=== PATIENT | male | born 1965 | race Caucasian/White ===

== ENCOUNTER 2021-02-03 16:40 | Inpatient (IN) ==
[2021-02-03] MEDS ORDERED: ALBUTEROL HFA 8 GM INHALER INH ONE ×2 (18:14→21:31)
[2021-02-03] MEDS ORDERED: SODIUM CHLORIDE 0.9% 1000ML 500 ML IV ONE (18:14)
--- NOTE | 2021-02-03 18:30 | Emergency Department Note ---
Impression & Plan Hypoxia, Pulmonary emboli, Pneumonia, COVID-19 ED Provider Note NAME: MAGALI MARIA AGE: 55 SEX: M : 1965 ARRIVES VIA: Walk-In INFORMANT: [Patient] ED PROVIDER(S): [Greyson Singh MD] CHIEF COMPLAINT: Short of breath, chest pain HISTORY OF PRESENT ILLNESS: The patient is a 55-year-old male who states that he tested positive for COVID- 19 5 days ago. He has been sick for about 10 to 11 days. He has had a fever, some body aches, cough. He has lost his taste and smell. He has had some diarrhea, no vomiting. He has felt somewhat short of breath. Today, he felt more short of breath than the day before and, developed some right sided pleuritic chest pain. The pain is an 8/10. The patient presents for evaluation because of the pain and increasing dyspnea. He has had a DVT in the past. He has no heart or lung disease underlying. REVIEW OF SYSTEMS: See HPI for pertinent positives and negatives. A total of ten systems were reviewed and were otherwise negative. PMHx/PSHx: See Below SOCIAL HISTORY: See Below. PHYSICAL EXAM: GENERAL: Patient is in no acute distress. HEENT: No acute trauma, normocephalic atraumatic, mucous membranes moist, no nasal congestion, no scleral icterus. NECK: No stridor, no adenopathy, no meningismus, trachea is midline. LUNGS: Crackles at both bases, moist cough noted. No obvious respiratory distre ss although, his respiratory rate seems increased. HEART: Without murmurs gallops or rubs, regular rate and rhythm. ABDOMEN: Soft, nontender, bowel sounds positive, no hernias, no peritonitis. EXTREMITIES: No cyanosis, mild bilateral pedal edema, full range of motion of all the joints without pain or difficulty, no signs for acute trauma. NEUROLOGIC: Oriented x 3, no acute motor or sensory deficits, no focal weakness. SKIN: No rash, no jaundice, no diaphoresis. DIFFERENTIAL DIAGNOSIS: Reactive airway disease, pneumonia, pneumothorax, COPD, CHF, over 19, infection, cardiac ischemia, pulmonary embolism, bronchitis, musculoskeletal, gastrointestinal, as well as other pathologies. EMERGENCY DEPARTMENT COURSE/PROCEDURES: ECG: Indication was shortness of breath. The ECG shows a normal sinus rhythm with a rate of 76. There is no ST elevation, no PVCs. The QTc is 436. Continuous Cardiac Monitoring: An order was placed for continuous cardiac monitoring. The monitor shows a rate of 82 with normal sinus rhythm. Critical Care Note: I have personally spent 41 minutes of critical care time in the direct management of this patient. This includes bedside care, interpretation of diagnostic studies, and testing, discussion with consultants, patient, and family members, and other required patient management activities. This 41 minutes is in excess of all separately billable procedures. MEDICAL DECISION MAKING: There is no leukocytosis or concerning anemia. There is a normal platelet count. No coagulopathy. Sodium and potassium both somewhat low. No kidney failure. No concerning liver enzyme elevation. ECG shows a sinus rhythm, no acute ischemic change. Cardiac enzyme testing x1 is not consistent with acute cardiac injury. Chest film shows bilateral congestion consistent with viral pneumonia. No pneumothorax. Covid testing returned positive. Chest CT suggest a pulmonary embolus and bilateral pulmonary infiltrates. Bilateral lower extremity ultrasound did not show any acute DVT. The patient was hypoxic here with a sat around 88%. He was placed on nasal cannula oxygen. He was given a 500 cc saline bolus. He was given albuterol via MDI. The patient is in need of a hospital stay. He has Covid pneumonia and is hypoxic. He has some pulmonary emboli. I spoke with the patient, I talked to the transplant case manager. The on-call hospitalist was consulted. Past Med/Surg History Medical History GERD (gastroesophageal reflux disease) Hypertension Impaired fasting glucose Right leg injury broken R leg, surgery to repair, approx 1976 Family History Grandfather (Paternal) Diabetes Father Heart disease Lung disease Grandmother (Maternal) Cancer of unknown origin Denies family history of Ovarian cancer Prostate cancer Myocardial infarction Breast cancer Colorectal cancer Hypertension Social History Smoking Status: Never smoker Tobacco Type: Smokeless Tobacco (Dip or Chew) Cigarettes Per Day: 1 cigarette per day in the morning, chews tobacco; Second Hand Exposure: Yes; Hx Alcohol Use: Yes Alcohol type: beer Hx Substance Use: No marital status: / Current Living Situation: Alone current occupational status: employed Feels Safe at Home: Yes Dental Care, Regularly: No Physical Activity Frequency: Daily Seatbelt Use: never Sunscreen Use: No Assistive Devices: CPAP Allergies Allergies Allergy/AdvReac Type Severity Reaction Status Date / Time No Known Allergies Allergy Verified 02/03/21 22:05 Home Meds Previous Rx's Medication Instructions Recorded lisinopril 10 mg tablet 10 mg PO DAILY #30 tab 05/24/20 hydrochlorothiazide 25 mg tablet 25 mg PO DAILY PRN #30 tab 01/11/21 amoxicillin 875 mg-potassium 1 tab PO BID #14 tab 01/28/21 clavulanate 125 mg tablet (Augmentin) azithromycin 250 mg tablet See Rx Instructions PO .COMPLEX #6 02/02/21 tab Results & Data (ED) Vital Signs Vital Signs - 24 hr 02/03/21 17:13 02/03/21 21:26 02/03/21 21:28 Temperature 37.0 C Temperature Source Temporal Artery Scan Pulse Rate 88 Pulse Rate [Apical] 82 Respiratory Rate 20 22 Respiratory Effort / Characteristics Non-Labored Non-Labored Spontaneous Respiratory Depth Normal Respiratory Pattern Regular Blood Pressure 140/81 Blood Pressure [Right Arm] 147/86 H Blood Pressure Mean 100 Blood Pressure Mean [Right Arm] 106 Pulse Oximetry 92 90 90 Oxygen Delivery Method Room Air Room Air Room Air Oxygen Flow Rate Sepsis Recent Fever Within 48 Hours No Sepsis New/Unexplained Change in Mental Status No Sepsis Action Taken by Nursing No Action Required Oxygen Flow Rate - Titration Pulse Oximetry Post Tiitration 02/03/21 21:37 02/03/21 21:41 02/03/21 23:20 Temperature Temperature Source Pulse Rate Pulse Rate [Apical] 83 Respiratory Rate 22 Respiratory Effort / Characteristics Non-Labored Spontaneous Respiratory Depth Normal Respiratory Pattern Blood Pressure Blood Pressure [Right Arm] 128/75 Blood Pressure Mean Blood Pressure Mean [Right Arm] 92 Pulse Oximetry 88 L 88 L 93 Oxygen Delivery Method Room Air Room Air Nasal Cannula Nasal Cannula Oxygen Flow Rate 2 Sepsis Recent Fever Within 48 Hours Sepsis New/Unexplained Change in Mental Status Sepsis Action Taken by Nursing Oxygen Flow Rate - Titration 2 Pulse Oximetry Post Tiitration 95 Home Medications Current Medication List: was personally reviewed by me Laboratory Data Attestation: I reviewed the patient's lab results. Result diagrams: 02/03/21 20:05 02/03/21 20:05 Lab Results 02/03/21 02/03/21 02/03/21 Range/Units 20:05 20:05 20:05 WBC 5.89 (4.8-10.8) K/uL RBC 5.00 (4.7-6.1) M/uL Hgb 16.1 (14.0-18.0) g/dL Hct 46.2 (42-52) % MCV 92.4 (80-100) fL MCH 32.2 (25-34) pg MCHC 34.8 (32-36) g/dL RDW Std Deviation 45.1 (36.4-46.3) fL RDW Coeff of Bautista 13.3 (11.5-14.5) % Plt Count 183 (130-400) K/uL MPV 9.7 (7.4-10.4) fL Immature Gran % (Auto) 0.2 % Neut % (Auto) 73.5 % Lymph % (Auto) 16.1 % Doddridge % (Auto) 10.0 % Eos % (Auto) 0.0 % Baso % (Auto) 0.2 % Neut # (Auto) 4.33 (1.4-6.5) K/uL Lymph # (Auto) 0.95 L (1.2-3.4) K/uL Doddridge # (Auto) 0.59 (0.11-0.59) K/uL Eos # (Auto) 0.00 (0-0.5) K/uL Baso # (Auto) 0.01 (0-0.2) K/uL Immature Gran # (Auto) 0.01 (0.00-0.02) K/uL PT 10.1 (9.0-12.0) Seconds INR 1.0 (0.9-1.1) APTT 27.6 (21.0-31.0) Seconds PTT Ratio 1.0 Sodium 130 L (136-145) mmol/L Potassium 3.4 L (3.5-5.1) mmol/L Chloride 93 L (98-107) mmol/L Carbon Dioxide 31 (21-32) mmol/L Anion Gap 6.0 (3-11) BUN 10 (7-18) mg/dl Creatinine 0.88 (0.6-1.4) mg/dl Est Cr Clr Drug Dosing 127.3 ml/min Est GFR ( Amer) 112.9 ml/min Est GFR (Non-Af Amer) 97.4 ml/min BUN/Creatinine Ratio 11.4 (10-20) Glucose 127 H (70-99) mg/dl Calcium 8.9 (8.5-10.1) mg/dl Magnesium 2.3 (1.8-2.4) mg/dl Total Bilirubin 0.9 (0.2-1) mg/dl AST 67 H (15-37) U/L ALT 56 (12-78) U/L Alkaline Phosphatase 46 (45-117) U/L Troponin I < 0.015 (0-0.045) ng/ml Total Protein 7.8 (6.4-8.2) gm/dl Albumin 3.1 L (3.4-5.0) gm/dl Globulin 4.7 H (2.5-4.0) gm/dl Albumin/Globulin Ratio 0.7 L (0.9-2) SARS-CoV-2 (PCR) (Negative) 02/03/21 Range/Units 21:47 WBC (4.8-10.8) K/uL RBC (4.7-6.1) M/uL Hgb (14.0-18.0) g/dL Hct (42-52) % MCV (80-100) fL MCH (25-34) pg MCHC (32-36) g/dL RDW Std Deviation (36.4-46.3) fL RDW Coeff of Bautista (11.5-14.5) % Plt Count (130-400) K/uL MPV (7.4-10.4) fL Immature Gran % (Auto) % Neut % (Auto) % Lymph % (Auto) % Doddridge % (Auto) % Eos % (Auto) % Baso % (Auto) % Neut # (Auto) (1.4-6.5) K/uL Lymph # (Auto) (1.2-3.4) K/uL Doddridge # (Auto) (0.11-0.59) K/uL Eos # (Auto) (0-0.5) K/uL Baso # (Auto) (0-0.2) K/uL Immature Gran # (Auto) (0.00-0.02) K/uL PT (9.0-12.0) Seconds INR (0.9-1.1) APTT (21.0-31.0) Seconds PTT Ratio Sodium (136-145) mmol/L Potassium (3.5-5.1) mmol/L Chloride (98-107) mmol/L Carbon Dioxide (21-32) mmol/L Anion Gap (3-11) BUN (7-18) mg/dl Creatinine (0.6-1.4) mg/dl Est Cr Clr Drug Dosing ml/min Est GFR ( Amer) ml/min Est GFR (Non-Af Amer) ml/min BUN/Creatinine Ratio (10-20) Glucose (70-99) mg/dl Calcium (8.5-10.1) mg/dl Magnesium (1.8-2.4) mg/dl Total Bilirubin (0.2-1) mg/dl AST (15-37) U/L ALT (12-78) U/L Alkaline Phosphatase (45-117) U/L Troponin I (0-0.045) ng/ml Total Protein (6.4-8.2) gm/dl Albumin (3.4-5.0) gm/dl Globulin (2.5-4.0) gm/dl Albumin/Globulin Ratio (0.9-2) SARS-CoV-2 (PCR) POSITIVE A* (Negative) Administered Medications Discontinued Medications Albuterol (Albuterol Hfa 8 Gm Inhaler) 2 puffs INH NOW ONE Stop: 02/03/21 18:15 Last Admin: 02/03/21 21:39 Dose: 2 puffs Documented by: [id number] Albuterol (Albuterol Hfa 8 Gm Inhaler) Confirm Administered Dose 60 puffs INH .STK-MED ONE Stop: 02/03/21 21:32 Last Admin: 02/03/21 21:35 Dose: Not Given Documented by: [id number] Sodium Chloride (Nss 1000ml) 500 mls @ 999 mls/hr IV .Q31M ONE Stop: 02/03/21 18:44 Last Infusion: 02/03/21 22:18 Dose: 0 mls/hr Documented by: [id number] Admin: 02/03/21 21:39 Dose: 999 mls/hr Documented by: [id number] Ioversol (Optiray 320 125ml) 120 ml IV ONCE ONE Stop: 02/03/21 21:02 Last Admin: 02/03/21 21:46 Dose: 120 ml Documented by: [id number] Imaging Data Radiologist's Impression: Chest X-Ray 02/03/21 17:17 XR chest 1V not portable CLINICAL HISTORY: SOB. . Positive Covid COMPARISON STUDY: No previous studies for comparison. TECHNIQUE: 1 view of the chest FINDINGS: Single frontal view of the chest demonstrates the cardiomediastinal silhouette to be within normal limits. Patchy interstitial and alveolar opacities are present bilaterally. The findings are most characteristic of a viral type pneumonitis. Covid 19 pneumonia should be excluded. There is no evidence for pleural effusion. There is no evidence for vascular congestion. There is no acute osseous pathology. IMPRESSION: Patchy interstitial and alveolar opacities bilaterally c haracteristic of a viral type pneumonitis and probable Covid 19 pneumonia. ACT 112: Negative or not required by law. Electronically signed by: William Whyte M.D. 02/03/2021 9:16 PM Chest CTA 02/03/21 18:14 CT ANGIOGRAM OF THE CHEST CLINICAL HISTORY: Dyspnea. Dizziness. Covid. COMPARISON STUDY: Chest x-ray dated 12/28/2009. TECHNIQUE: Following the IV administration of 120 cc of Optiray 320, CT angiogram of the chest was performed from the upper abdomen to the thoracic inlet utilizing the pulmonary embolus protocol. Images are reviewed in the axial, sagittal, and coronal planes. 3-D MIPS images are created and assessed. IV contrast was administered without complication. A dose lowering technique was utilized adhering to the principles of ALARA. The examination is modestly degraded by motion artifact. CT DOSE: 750.53 mGy.cm FINDINGS: Thyroid: Imaged portions of the thyroid gland are normal in size and attenuation. Thoracic aorta: The thoracic aorta is normal in caliber and demonstrates bovine variant arch anatomy. No dissection is seen. Pulmonary vasculature: The pulmonary trunk is normal in caliber. There is artif act versus trace nonocclusive pulmonary embolus within branches of the left lower lobe pulmonary artery (axial images #99 and #107). No additional filling defects identified in main, lobar, or proximal segmental pulmonary branches typical for pulmonary embolus. Evaluation of the peripheral branches is degraded by motion artifact. Heart: The heart is normal in size and without pericardial effusion. There are scattered coronary artery calcifications. Lungs and pleural spaces: There is multifocal groundglass consolidation seen throughout both lungs with a subpleural predominance. No pleural effusion is identified. There are scattered calcified granulomas. The trachea and central airways are clear. Mediastinum: There are calcified subcarinal nodes. No mediastinal adenopathy is identified. Shirley: Clear. Axillae: There is no axillary lymphadenopathy. Upper abdomen: A calcified granuloma is noted in the spleen. Partially visualized upper abdominal viscera is otherwise within normal limits. Skeletal structures: No lytic or blastic bony lesions are seen. IMPRESSION: 1. Artifact versus trace nonocclusive pulmonary embolus within branches of the left lower lobe pulmonary artery. 2. No additional findings are concerning for pulmonary embolus within the main, lobar, or proximal segmental pulmonary arteries. 3. Multifocal groundglass consolidation is consistent with the reported history of a viral pneumonia. Radiographic follow-up to resolution is recommended. 4. Additional findings as above. ACT 112: Negative or not required by law. Electronically signed by: Greyson Brewer M.D. 02/03/2021 9:16 PM Venous Doppler Study 02/03/21 21:42 ULTRASOUND BILATERAL LOWER EXTREMITY VENOUS CLINICAL HISTORY: Lower extremity edema. Covid. COMPARISON STUDY: No priors. TECHNIQUE: Real-time, grayscale, and color Doppler sonography of the deep veins of the right and left lower extremity was performed from the inguinal crease to the calf. Compression and augmentation were utilized. FINDINGS: There is no sonographic evidence of deep venous thrombosis identified in the right or left lower extremity. The common femoral, superficial femoral, and popliteal veins are patent and normally compressible bilaterally. The greater saphenous vein and the profunda femoris vein at the junction with the common femoral vein are clear in both legs. The visualized calf veins are patent bilaterally. IMPRESSION: There is no sonographic evidence of deep venous thrombosis identified in the right or left lower extremity. ACT 112: Negative or not required by law. Electronically signed by: Greyson Brewer M.D. 02/03/2021 10:55 PM Discharge Plan Visit Data Chief Complaint: Shortness of Breath/Dyspnea Stated Complaint: SOB - DIZZY - COVID POSITIVE ED Provider: Greyson Singh Discharge Problem: Hypoxia, Pulmonary emboli, Pneumonia, COVID-19 Patient Disposition: Admitted As Inpatient Condition: Fair Forms Stand Alone Forms: My [facility] Prescriptions Prescriptions: No Action lisinopril 10 mg tablet 10 mg PO DAILY Qty: 30 RF: 5 amoxicillin-pot clavulanate [Augmentin] 875-125 mg tablet 1 tab PO BID Qty: 14 RF: 0 azithromycin 250 mg tablet See Rx Instructions PO .COMPLEX Qty: 6 RF: 0 hydrochlorothiazide 25 mg tablet 25 mg PO DAILY PRN (Reason: swelling) Qty: 30 RF: 5 Referrals Referrals: Chanel De Anda CRNP [Primary Care Provider] -
[2021-02-03 20:17] LABS: Basophils # (auto) 0.01 K/uL (0-0.2); Basophils % (auto) 0.2 %; Hematocrit (blood only) 46.2 % (42-52); Hemoglobin 16.1 g/dL (14.0-18.0); Immature Granulocytes # (auto) 0.01 K/uL (0.00-0.02); Immature Granulocytes % (auto) 0.2 %; Lymphocytes # (auto) 0.95 K/uL (1.2-3.4); Lymphocytes % (auto) 16.1 %; Mean Corpuscular Hemoglobin 32.2 pg (25-34); Mean Corpuscular Hgb Conc 34.8 g/dL (32-36); Mean Corpuscular Volume 92.4 fL (80-100); Mean Platelet Volume 9.7 fL (7.4-10.4); Monocytes # (auto) 0.59 K/uL (0.11-0.59); Neutrophils # (auto) 4.33 K/uL (1.4-6.5); Neutrophils % (auto) 73.5 %; Platelet Count 183 K/uL (130-400); RDW Coefficient of Variation 13.3 % (11.5-14.5); RDW Standard Deviation 45.1 fL (36.4-46.3); White Blood Count 5.89 K/uL (4.8-10.8)
[2021-02-03 20:28] LABS: Partial Thromboplastin Time 27.6 Seconds (21.0-31.0); Prothrombin Time 10.1 Seconds (9.0-12.0)
[2021-02-03 20:35] LABS: Alanine Aminotransferase 56 U/L (12-78); Albumin Level 3.1 gm/dl (3.4-5.0); Aspartate Aminotransferase 67 U/L (15-37); BUN Creatinine Ratio 11.4 (10-20); Blood Urea Nitrogen 10 mg/dl (7-18); Calcium 8.9 mg/dl (8.5-10.1); Carbon Dioxide 31 mmol/L (21-32); Chloride 93 mmol/L (98-107); Creatinine Clr Calc Pharmacy 127.3 ml/min; Est GFR (African American) 112.9 ml/min; Est GFR (Non-African American) 97.4 ml/min; Glucose 127 mg/dl (70-99); Magnesium 2.3 mg/dl (1.8-2.4); Potassium 3.4 mmol/L (3.5-5.1); Sodium 130 mmol/L (136-145)
[2021-02-03 20:40] LABS: Albumin Globulin Ratio 0.7 (0.9-2); Alkaline Phosphatase 46 U/L (45-117); Bilirubin,Total 0.9 mg/dl (0.2-1); Globulin 4.7 gm/dl (2.5-4.0); Total Protein 7.8 gm/dl (6.4-8.2); Troponin I < 0.015 ng/ml (0-0.045)
[2021-02-03] MEDS ORDERED: OPTIRAY 320 125ml IV ONE (21:01)
--- NOTE | 2021-02-03 21:17 | XRay Report ---
XR chest 1V not portable CLINICAL HISTORY: SOB. . Positive Covid COMPARISON STUDY: No previous studies for comparison. TECHNIQUE: 1 view of the chest FINDINGS: Single frontal view of the chest demonstrates the cardiomediastinal silhouette to be within normal li mits. Patchy interstitial and alveolar opacities are present bilaterally. The findings are most hannah cteristic of a viral type pneumonitis. Covid 19 pneumonia should be excluded. There is no evidence fo r pleural effusion. There is no evidence for vascular congestion. There is no acute osseous pathology . IMPRESSION: Patchy interstitial and alveolar opacities bilaterally characteristic of a viral type pne umonitis and probable Covid 19 pneumonia. ACT 112: Negative or not required by law. Electronically signed by: William Whyte M.D. 02/03/2021 9:16 PM
--- NOTE | 2021-02-03 21:18 | CT Scan Report ---
CT ANGIOGRAM OF THE CHEST CLINICAL HISTORY: Dyspnea. Dizziness. Covid. COMPARISON STUDY: Chest x-ray dated 12/28/2009. TECHNIQUE: Following the IV administration of 120 cc of Optiray 320, CT angiogram of the chest was pe rformed from the upper abdomen to the thoracic inlet utilizing the pulmonary embolus protocol. Images are reviewed in the axial, sagittal, and coronal planes. 3-D MIPS images are created and assessed. I V contrast was administered without complication. A dose lowering technique was utilized adhering to the principles of ALARA. The examination is modestly degraded by motion artifact. CT DOSE: 750.53 mGy.cm FINDINGS: Thyroid: Imaged portions of the thyroid gland are normal in size and attenuation. Thoracic aorta: The thoracic aorta is normal in caliber and demonstrates bovine variant arch anatomy. No dissection is seen. Pulmonary vasculature: The pulmonary trunk is normal in caliber. There is artifact versus trace nonoc clusive pulmonary embolus within branches of the left lower lobe pulmonary artery (axial images #99 a nd #107). No additional filling defects identified in main, lobar, or proximal segmental pulmonary br anches typical for pulmonary embolus. Evaluation of the peripheral branches is degraded by motion art ifact. Heart: The heart is normal in size and without pericardial effusion. There are scattered coronary art marjorie calcifications. Lungs and pleural spaces: There is multifocal groundglass consolidation seen throughout both lungs wi th a subpleural predominance. No pleural effusion is identified. There are scattered calcified granul omas. The trachea and central airways are clear. Mediastinum: There are calcified subcarinal nodes. No mediastinal adenopathy is identified. Shirley: Clear. Axillae: There is no axillary lymphadenopathy. Upper abdomen: A calcified granuloma is noted in the spleen. Partially visualized upper abdominal vis cera is otherwise within normal limits. Skeletal structures: No lytic or blastic bony lesions are seen. IMPRESSION: 1. Artifact versus trace nonocclusive pulmonary embolus within branches of the left lower lobe pulmon baljinder artery. 2. No additional findings are concerning for pulmonary embolus within the main, lobar, or proximal se gmental pulmonary arteries. 3. Multifocal groundglass consolidation is consistent with the reported history of a viral pneumonia. Radiographic follow-up to resolution is recommended. 4. Additional findings as above. ACT 112: Negative or not required by law. Electronically signed by: Greyson Brewer M.D. 02/03/2021 9:16 PM
--- NOTE | 2021-02-03 22:56 | Ultrasound Report ---
ULTRASOUND BILATERAL LOWER EXTREMITY VENOUS CLINICAL HISTORY: Lower extremity edema. Covid. COMPARISON STUDY: No priors. TECHNIQUE: Real-time, grayscale, and color Doppler sonography of the deep veins of the right and left lower extremity was performed from the inguinal crease to the calf. Compression and augmentation wer e utilized. FINDINGS: There is no sonographic evidence of deep venous thrombosis identified in the right or left lower extremity. The common femoral, superficial femoral, and popliteal veins are patent and normally compressible bilaterally. The greater saphenous vein and the profunda femoris vein at the junction w ith the common femoral vein are clear in both legs. The visualized calf veins are patent bilaterally. IMPRESSION: There is no sonographic evidence of deep venous thrombosis identified in the right or lef t lower extremity. ACT 112: Negative or not required by law. Electronically signed by: Greyson Brewer M.D. 02/03/2021 10:55 PM
[2021-02-03] MEDS ORDERED: REMDESIVIR 200 MG in SODIUM CHLORIDE 0.9% 210 ML IV STA (23:42)
--- NOTE | 2021-02-03 23:43 | History & Physical Report ---
Date of Service February 03, 2021 Assessment & Plan (1) Pneumonia due to COVID-19 virus: Plan: Pneumonia due to COVID-19 virus with hypoxia- CT scan of chest also describes artifact versus trace nonocclusive pulmonary embolus within branches of the left lower lobe pulmonary artery. Follow up venous Dopplers were negative for DVT. I do not think that this questionable changes are significantly affecting the patient's health status Dexamethasone 6 mg IV every morning Duonebs every 4 hours while awake and every 2 hours when necessary. Remdesivir IV per protocol Azithromycin 500 mg IV daily Vitamin D 1000 international units p.o. every morning Zinc sulfate turn 20 mg p.o. every morning Lovenox subcu Pulse ox 88% on room air, titrate oxygen to keep pulse ox around 94% (2) Hypoxia: Plan: See above (3) Sleep apnea: Plan: CPAP at bedtime as needed (4) Hypertension: Plan: Hold HCTZ and lisinopril History of Present Illness Chief Complaint: The patient presents to the emergency department with shortness of breath, dyspnea exertion, cough, generalized fatigue that began about 9 to 10 days ago Primary Care Provider: SONIA Lamas The patient is a 55-year-old male with a past medical history including sleep apnea, snoring, excessive daytime sleepiness, GERD, impaired fasting glucose, hypertension, seborrheic keratoses and microscopic hematuria. The patient presents with 9 to 10 days of the above symptoms. He did have a positive home COVID-19test about 5 days ago. Pulse ox was 88% on room air in the ED Abnormal laboratories: AST 67, albumin 3.1, potassium 3.4 COVID-19 test was positive in the ED Chest x-ray and CT angiography of chest was negative for PE. Calcified granulomas were seen in the lungs, mediastinum, subcarinal areas and spleen. There are multiple groundglass opacities consistent with a viral pneumonia Allergies Allergy/AdvReac Type Severity Reaction Status Date / Time No Known Allergies Allergy Verified 02/03/21 22:05 Home Medications Medication Instructions Recorded Confirmed Type lisinopril 10 mg tablet 10 mg PO DAILY #30 tab 05/24/20 02/03/21 Rx hydrochlorothiazide 25 mg tablet 25 mg PO DAILY PRN #30 tab 01/11/21 02/03/21 Rx amoxicillin 875 mg-potassium 1 tab PO BID #14 tab 01/28/21 02/03/21 Rx clavulanate 125 mg tablet (Augmentin) azithromycin 250 mg tablet See Rx Instructions PO .COMPLEX #6 02/02/21 02/03/21 Rx tab Past Med/Surg History Medical History GERD (gastroesophageal reflux disease) Hypertension Impaired fasting glucose Right leg injury broken R leg, surgery to repair, approx 1976 Family History Grandfather (Paternal) Diabetes Father Heart disease Lung disease Grandmother (Maternal) Cancer of unknown origin Denies family history of Ovarian cancer Prostate cancer Myocardial infarction Breast cancer Colorectal cancer Hypertension Social History Smoking Status: Never smoker Tobacco Type: Smokeless Tobacco (Dip or Chew) Cigarettes Per Day: 1 cigarette per day in the morning, chews tobacco; Second Hand Exposure: Yes; Hx Alcohol Use: Yes Alcohol type: beer Hx Substance Use: No marital status: / Current Living Situation: Alone current occupational status: employed Feels Safe at Home: Yes Dental Care, Regularly: No Physical Activity Frequency: Daily Seatbelt Use: never Sunscreen Use: No Assistive Devices: CPAP Review of Systems Review of Systems: The patient denies chest pain, palpitations, lower extremity swelling, sore throat, chills, sweats, weight change, fatigue, nausea, vomiting, diarrhea , constipation, abdominal pain, pelvic pain, blood in urine or stool, dysuria, urinary frequency or urgency, lightheadedness, dizziness, headache, memory loss, loss of consciousness, rash, abnormal bruising or bleeding, imbalance, focal weakness, numbness or tingling in arms or legs, generalized arthralgias or myalgias, back or neck pain, or night sweats. The review of systems is otherwise negative other than for that already noted above, and at least 10 systems have been reviewed. Physical Exam Physical Exam: The patient is awake, alert and oriented 3, well developed and well nourished, normocephalic and atraumatic, lying in bed and in no acute distress. HEENT--PERRL, EOMI, mucous membranes and oropharynx normal. Neck--supple. No JVD. No bruits. Thyroid normal, trachea midline, no adenopathy. Heart--normal S1 and S2. No murmurs, rubs or gallops. Lungs--few coarse breath sounds bilaterally. No respiratory distress, no accessory muscle use. Abdomen--normal bowel sounds and soft. Nontender. Nondistended, no hernias or masses, no organomegaly. Extremities--no cyanosis or clubbing. No edema. Dermatologic--normal skin turgor, normal color, no abnormal lymph nodes, no rash. Neurologic--cranial nerves II through XII grossly intact. Rheumatologic--normal range of motion. Psychiatric--normal affect. Results & Data Results & Data ([facility]) Vital Signs (Past 12 Hours) Vital Signs Temp Pulse Pulse Resp BP BP Pulse Ox 02/03/21 23:20 83 22 128/75 93 02/03/21 21:41 88 L 02/03/21 21:37 88 L 02/03/21 21:28 90 02/03/21 21:26 82 22 147/86 H 90 02/03/21 17:13 37.0 C 88 20 140/81 92 Laboratory Results Laboratory Results WBC 5.89 K/uL (4.8-10.8) 02/03/21 20:05 RBC 5.00 M/uL (4.7-6.1) 02/03/21 20:05 Hgb 16.1 g/dL (14.0-18.0) 02/03/21 20:05 Hct 46.2 % (42-52) 02/03/21 20:05 MCV 92.4 fL (80-100) 02/03/21 20:05 MCH 32.2 pg (25-34) 02/03/21 20:05 MCHC 34.8 g/dL (32-36) 02/03/21 20:05 RDW Std Deviation 45.1 fL (36.4-46.3) 02/03/21 20:05 RDW Coeff of Bautista 13.3 % (11.5-14.5) 02/03/21 20:05 Plt Count 183 K/uL (130-400) 02/03/21 20:05 MPV 9.7 fL (7.4-10.4) 02/03/21 20:05 Immature Gran % (Auto) 0.2 % 02/03/21 20:05 Neut % (Auto) 73.5 % 02/03/21 20:05 Lymph % (Auto) 16.1 % 02/03/21 20:05 [place] % (Auto) 10.0 % 02/03/21 20:05 Eos % (Auto) 0.0 % 02/03/21 20:05 Baso % (Auto) 0.2 % 02/03/21 20:05 Neut # (Auto) 4.33 K/uL (1.4-6.5) 02/03/21 20:05 Lymph # (Auto) 0.95 K/uL (1.2-3.4) L 02/03/21 20:05 [place] # (Auto) 0.59 K/uL (0.11-0.59) 02/03/21 20:05 Eos # (Auto) 0.00 K/uL (0-0.5) 02/03/21 20:05 Baso # (Auto) 0.01 K/uL (0-0.2) 02/03/21 20:05 Immature Gran # (Auto) 0.01 K/uL (0.00-0.02) 02/03/21 20:05 PT 10.1 Seconds (9.0-12.0) 02/03/21 20:05 INR 1.0 (0.9-1.1) 02/03/21 20:05 APTT 27.6 Seconds (21.0-31.0) 02/03/21 20:05 PTT Ratio 1.0 02/03/21 20:05 Sodium 130 mmol/L (136-145) L 02/03/21 20:05 Potassium 3.4 mmol/L (3.5-5.1) L 02/03/21 20:05 Chloride 93 mmol/L (98-107) L 02/03/21 20:05 Carbon Dioxide 31 mmol/L (21-32) 02/03/21 20:05 Anion Gap 6.0 (3-11) 02/03/21 20:05 BUN 10 mg/dl (7-18) 02/03/21 20:05 Creatinine 0.88 mg/dl (0.6-1.4) 02/03/21 20:05 Est Cr Clr Drug Dosing 127.3 ml/min 02/03/21 20:05 Est GFR ( Amer) 112.9 ml/min 02/03/21 20:05 Est GFR (Non-Af Amer) 97.4 ml/min 02/03/21 20:05 BUN/Creatinine Ratio 11.4 (10-20) 02/03/21 20:05 Glucose 127 mg/dl (70-99) H 02/03/21 20:05 Calcium 8.9 mg/dl (8.5-10.1) 02/03/21 20:05 Magnesium 2.3 mg/dl (1.8-2.4) 02/03/21 20:05 Total Bilirubin 0.9 mg/dl (0.2-1) 02/03/21 20:05 AST 67 U/L (15-37) H 02/03/21 20:05 ALT 56 U/L (12-78) 02/03/21 20:05 Alkaline Phosphatase 46 U/L (45-117) 02/03/21 20:05 Troponin I < 0.015 ng/ml (0-0.045) 02/03/21 20:05 Total Protein 7.8 gm/dl (6.4-8.2) 02/03/21 20:05 Albumin 3.1 gm/dl (3.4-5.0) L 02/03/21 20:05 Globulin 4.7 gm/dl (2.5-4.0) H 02/03/21 20:05 Albumin/Globulin Ratio 0.7 (0.9-2) L 02/03/21 20:05 SARS-CoV-2 (PCR) POSITIVE (Negative) A* 02/03/21 21:47 Impressions Chest X-Ray 02/03/21 17:17 XR chest 1V not portable CLINICAL HISTORY: SOB. . Positive Covid COMPARISON STUDY: No previous studies for comparison. TECHNIQUE: 1 view of the chest FINDINGS: Single frontal view of the chest demonstrates the cardiomediastinal silhouette to be within normal limits. Patchy interstitial and alveolar opacities are present bilaterally. The findings are most characteristic of a viral type pneumonitis. Covid 19 pneumonia should be excluded. There is no evidence for pleural effusion. There is no evidence for vascular congestion. There is no acute osseous pathology. IMPRESSION: Patchy interstitial and alveolar opacities bilaterally characteristic of a viral type pneumonitis and probable Covid 19 pneumonia. ACT 112: Negative or not required by law. Electronically signed by: William Whyte M.D. 02/03/2021 9:16 PM Chest CTA 02/03/21 18:14 CT ANGIOGRAM OF THE CHEST CLINICAL HISTORY: Dyspnea. Dizziness. Covid. COMPARISON STUDY: Chest x-ray dated 12/28/2009. TECHNIQUE: Following the IV administration of 120 cc of Optiray 320, CT angiogram of the chest was performed from the upper abdomen to the thoracic inlet utilizing the pulmonary embolus protocol. Images are reviewed in the axial, sagittal, and coronal planes. 3-D MIPS images are created and assessed. IV contrast was administered without complication. A dose lowering technique was utilized adhering to the principles of ALARA. The examination is modestly degraded by motion artifact. CT DOSE: 750.53 mGy.cm FINDINGS: Thyroid: Imaged portions of the thyroid gland are normal in size and attenuation. Thoracic aorta: The thoracic aorta is normal in caliber and demonstrates bovine variant arch anatomy. No dissection is seen. Pulmonary vasculature: The pulmonary trunk is normal in caliber. There is artifact versus trace nonocclusive pulmonary embolus within branches of the left lower lobe pulmonary artery (axial images #99 and #107). No additional filling defects identified in main, lobar, or proximal segmental pulmonary branches typical for pulmonary embolus. Evaluation of the peripheral branches is degraded by motion artifact. Heart: The heart is normal in size and without pericardial effusion. There are scattered coronary artery calcifications. Lungs and pleural spaces: There is multifocal groundglass consolidation seen throughout both lungs with a subpleural predominance. No pleural effusion is identified. There are scattered calcified granulomas. The trachea and central airways are clear. Mediastinum: There are calcified subcarinal nodes. No mediastinal adenopathy is identified. [place]: Clear. Axillae: There is no axillary lymphadenopathy. Upper abdomen: A calcified granuloma is noted in the spleen. Partially visualized upper abdominal viscera is otherwise within normal limits. Skeletal structures: No lytic or blastic bony lesions are seen. IMPRESSION: 1. Artifact versus trace nonocclusive pulmonary embolus within branches of the left lower lobe pulmonary artery. 2. No additional findings are concerning for pulmonary embolus within the main, lobar, or proximal segmental pulmonary arteries. 3. Multifocal groundglass consolidation is consistent with the reported history of a viral pneumonia. Radiographic follow-up to resolution is recommended. 4. Additional findings as above. ACT 112: Negative or not required by law. Electronically signed by: rGeyson Brewer M.D. 02/03/2021 9:16 PM Venous Doppler Study 02/03/21 21:42 ULTRASOUND BILATERAL LOWER EXTREMITY VENOUS CLINICAL HISTORY: Lower extremity edema. Covid. COMPARISON STUDY: No priors. TECHNIQUE: Real-time, grayscale, and color Doppler sonography of the deep veins of the right and left lower extremity was performed from the inguinal crease to the calf. Compression and augmentation were utilized. FINDINGS: There is no sonographic evidence of deep venous thrombosis identified in the right or left lower extremity. The common femoral, superficial femoral, and popliteal veins are patent and normally compressible bilaterally. The greater saphenous vein and the profunda femoris vein at the junction with the common femoral vein are clear in both legs. The visualized calf veins are patent bilaterally. IMPRESSION: There is no sonographic evidence of deep venous thrombosis identified in the right or left lower extremity. ACT 112: Negative or not required by law. Electronically signed by: Greyson Brewer M.D. 02/03/2021 10:55 PM Code Status & VTE Plan Code Status Full code VTE Prophylaxis Plan VTE Prophylaxis will be ordered: Yes PG Care Time/CCT Total # of Minutes Spent Total Time Spent with Patient: Total time spent is greater than 50% in coordination of care (as documented) at patient's floor/unit and/or counseling patient: Coding Level of Care Code 09178 Initial Inpt Care Lvl 3 Diagnoses Pneumonia due to COVID-19 virus U07.1; J12.82 Hypoxia R09.02 Sleep apnea G47.30 Hypertension I10
[2021-02-04] MEDS ORDERED: NSS + 20MEQ KCL 20 MEQ/1,000 ML BAG IV SCH (02:26)
[2021-02-04] MEDS ORDERED: ONDANSETRON INJ 2 MG/ML 2 ML VIAL IV PRN (02:26)
[2021-02-04] MEDS ORDERED: ACETAMINOPHEN 325 MG TAB PO PRN (02:26)
[2021-02-04] MEDS: SODIUM CHLORIDE 0.9% 10ML FLUSH IV SCH ×2 (03:29→20:50)
[2021-02-04] MEDS: dexAMETHasone 6 MG in SYRINGE 0 ML IV SCH (03:56)
[2021-02-04] MEDS ORDERED: FLUARIX QUADRIVALENT 0.5 ML SYR IM ONE (04:08)
[2021-02-04] MEDS ORDERED: ALBUT/IPRATROP 3MG/0.5MG NEB 3 ML VIAL NEB SCH (07:00)
--- NOTE | 2021-02-04 07:30 | Electrocardiogram Report ---
Test Reason : Blood Pressure : / mmHG Vent. Rate : 076 BPM Atrial Rate : 076 BPM P-R Int : 166 ms QRS Dur : 106 ms QT Int : 388 ms P-R-T Axes : 025 018 027 degrees QTc Int : 436 ms Normal sinus rhythm Normal ECG When compared with ECG of 28-DEC-2009 15:46, No significant change was found Confirmed by Dionisio Richey ([id number]) on 02/04/2021 7:30:42 AM Referred By: REFERRED SELF Confirmed By:Phoenix Richey
[2021-02-04] MEDS ORDERED: ALBUT/IPRATROP 3MG/0.5MG NEB 3 ML VIAL NEB PRN (08:39)
[2021-02-04] MEDS ORDERED: AZITHROMYCIN 500 MG in DEXTROSE 5% 250 ML IV SCH (09:00)
[2021-02-04] MEDS: CHOLECALCIFEROL 1,000 UNITS 25 MCG TAB PO SCH (09:06)
[2021-02-04] MEDS: guaiFENesin 600 MG TABCR PO SCH ×2 (09:06→20:51)
[2021-02-04] MEDS: ZINC SULFATE 220 MG CAPSULE PO SCH (09:06)
[2021-02-04] MEDS: ENOXAPARIN INJ 60 MG/0.6 ML SYR SQ SCH (09:13)
[2021-02-04 12:37] LABS: Basophils # (auto) 0.02 K/uL (0-0.2); Basophils % (auto) 0.4 %; Hematocrit (blood only) 43.5 % (42-52); Hemoglobin 15.3 g/dL (14.0-18.0); Immature Granulocytes # (auto) 0.01 K/uL (0.00-0.02); Immature Granulocytes % (auto) 0.2 %; Lymphocytes # (auto) 0.54 K/uL (1.2-3.4); Mean Corpuscular Hemoglobin 32.6 pg (25-34); Mean Corpuscular Hgb Conc 35.2 g/dL (32-36); Mean Corpuscular Volume 92.6 fL (80-100); Mean Platelet Volume 10.6 fL (7.4-10.4); Monocytes # (auto) 0.19 K/uL (0.11-0.59); Monocytes % (auto) 3.9 %; Neutrophils # (auto) 4.13 K/uL (1.4-6.5); Neutrophils % (auto) 84.5 %; Platelet Count 217 K/uL (130-400); RDW Coefficient of Variation 13.2 % (11.5-14.5); RDW Standard Deviation 45.2 fL (36.4-46.3); White Blood Count 4.89 K/uL (4.8-10.8)
[2021-02-04 12:56] LABS: Albumin Level 2.9 gm/dl (3.4-5.0); Calcium 8.7 mg/dl (8.5-10.1); Est GFR (African American) 115.6 ml/min; Est GFR (Non-African American) 99.8 ml/min; Potassium 3.8 mmol/L (3.5-5.1)
[2021-02-04 12:59] LABS: Albumin Globulin Ratio 0.6 (0.9-2); Bilirubin,Total 0.8 mg/dl (0.2-1); Globulin 4.5 gm/dl (2.5-4.0); Total Protein 7.4 gm/dl (6.4-8.2)
[2021-02-04] MEDS ORDERED: REMDESIVIR 100 MG in SODIUM CHLORIDE 0.9% 230 ML IV SCH (20:00)
--- NOTE | 2021-02-04 20:31 | Hospitalist Progress Note ---
Date of Service February 04, 2021 Assessment & Plan (1) Pneumonia due to COVID-19 virus: Plan: Pneumonia due to COVID-19 virus with hypoxia- CT scan of chest also describes artifact versus trace nonocclusive pulmonary embolus within branches of the left lower lobe pulmonary artery. Follow up venous Dopplers were negative for DVT doubt DVT at this time but given size and risk factor, will continue Lovenox while here, Xarelto on discharge continue Dexamethasone 6mg IV daily stop Remdesivir as he is 10 days out change Zithromax to PO, complete 5 days total on 2L, try to titrate as tolerated Vitamin D 1000 international units p.o. every morning Zinc sulfate turn 20 mg p.o. every morning (2) Hypoxia: Plan: stable on 2L, try to titrate to room air, no distress or increased work of breathing give lasix 20mg IV in the morning to keep negative fluid balance (3) Sleep apnea: Plan: CPAP at bedtime as needed his home CPAP does not have an oxygen connection (4) Hypertension: Plan: Hold HCTZ and lisinopril, BP is stable off it Plan: try to wean off oxygen consider d/c to home tomorrow if he is on room air Admission and Anticipated Discharge Date Admission Date: February 03, 2021 Subjective patient doing well on 2L today, no distress, confirms he has been sick around 10 days discussed reasoning behind stopping Remdesivir, he understands, will change Zithromax to PO he is finally eating more, admits he was not eating a lot prior to admission, had some nausea but that is gone no chest pain, no fever, minimal cough, no diarrhea reviewed labs and chart discussed that if we can get him on room air he can go home, will try a dose of Lasix in the morning as he appears a little volume overloaded Review of Systems Review of Systems: All systems reviewed & are unremarkable except as noted in Subjective Physical Exam Physical Exam: General: well developed, well nourished, obese male, no acute distress, comfortable Neck: supple, trachea midline, normal thyroid Lungs: clear to auscultation bilaterally, normal respiratory effort, no accessory muscle use, no distress Heart: regular S1 and S2, no murmur, peripheral pulses normal, capillary refill normal, trace edema in ankles Abdomen: soft, NT, ND, + BS, no hepatomegaly, normal to percussion Extremities: normal in appearance, no cyanosis, no petechiae, strength is 5/5 bilaterally Neuro: awake, cooperative, moves all extremities, no focal motor deficits, CN II-XII intact, sensation in extremities intact, normal speech Skin: warm, dry, no rash, normal turgor Psych: Awake, alert oriented x 3, euthymic affect Results & Data Results & Data ([facility]) Vital Signs (Past 12 Hours) Vital Signs Temp Pulse Pulse Resp BP Pulse Ox 02/04/21 15:24 36.8 C 81 16 136/72 92 02/04/21 15:10 71 02/04/21 13:12 36.7 C 78 16 130/78 95 02/04/21 13:00 79 02/04/21 12:00 80 24 02/04/21 10:00 75 23 Laboratory Results Laboratory Results - last 24 hr 02/03/21 02/03/21 02/04/21 20:05 21:47 08:41 WBC 4.89 RBC 4.70 Hgb 15.3 Hct 43.5 MCV 92.6 MCH 32.6 MCHC 35.2 RDW Std Deviation 45.2 RDW Coeff of Bautista 13.2 Plt Count 217 MPV 10.6 H Immature Gran % (Auto) 0.2 Neut % (Auto) 84.5 Lymph % (Auto) 11.0 [place] % (Auto) 3.9 Eos % (Auto) 0.0 Baso % (Auto) 0.4 Neut # (Auto) 4.13 Lymph # (Auto) 0.54 L [place] # (Auto) 0.19 Eos # (Auto) 0.00 Baso # (Auto) 0.02 Immature Gran # (Auto) 0.01 Sodium 130 L Potassium 3.4 L Chloride 93 L Carbon Dioxide 31 Anion Gap 6.0 BUN 10 Creatinine 0.88 Est Cr Clr Drug Dosing 127.3 Est GFR ( Amer) 112.9 Est GFR (Non-Af Amer) 97.4 BUN/Creatinine Ratio 11.4 Glucose 127 H Calcium 8.9 Magnesium 2.3 Total Bilirubin 0.9 AST 67 H ALT 56 Alkaline Phosphatase 46 Troponin I < 0.015 Total Protein 7.8 Albumin 3.1 L Globulin 4.7 H Albumin/Globulin Ratio 0.7 L SARS-CoV-2 (PCR) POSITIVE A* 02/04/21 08:41 WBC RBC Hgb Hct MCV MCH MCHC RDW Std Deviation RDW Coeff of Bautista Plt Count MPV Immature Gran % (Auto) Neut % (Auto) Lymph % (Auto) [place] % (Auto) Eos % (Auto) Baso % (Auto) Neut # (Auto) Lymph # (Auto) [place] # (Auto) Eos # (Auto) Baso # (Auto) Immature Gran # (Auto) Sodium 128 L Potassium 3.8 Chloride 94 L Carbon Dioxide 27 Anion Gap 7.0 BUN 9 Creatinine 0.83 Est Cr Clr Drug Dosing 135.0 Est GFR ( Amer) 115.6 Est GFR (Non-Af Amer) 99.8 BUN/Creatinine Ratio 11.0 Glucose 242 H Calcium 8.7 Magnesium Total Bilirubin 0.8 AST 68 H ALT 54 Alkaline Phosphatase 45 Troponin I Total Protein 7.4 Albumin 2.9 L Globulin 4.5 H Albumin/Globulin Ratio 0.6 L SARS-CoV-2 (PCR) Medications Administered Current Inpatient Medications Acetaminophen (Acetaminophen 325 Mg Tab) 650 mg PO Q4H PRN PRN Reason: Pain or Fever Stop: 03/06/21 02:25 Albuterol (Albut/Ipratrop 3mg/0.5mg Neb 3 Ml Vial) 3 ml NEB Q4R PRN PRN Reason: Shortness Of Breath Or Wheezing Stop: 03/06/21 10:59 Azithromycin (Azithromycin 250 Mg Tab) 500 mg PO QAM [facility] Stop: 02/12/21 08:59 Enoxaparin Sodium (Enoxaparin Inj 60 Mg/0.6 Ml Syr) 60 mg SQ Q24H JOE Stop: 03/06/21 08:59 Last Admin: 02/04/21 09:13 Dose: 60 mg Documented by: Furosemide (Furosemide Inj 20 Mg/2 Ml Vial) 20 mg IV QAM [facility] Stop: 03/07/21 08:59 Guaifenesin (Guaifenesin 600 Mg Tabcr) 1,200 mg PO Q12 JOE Stop: 03/06/21 08:59 Last Admin: 02/04/21 09:06 Dose: 1,200 mg Documented by: Dexamethasone 6 mg/ Syringe 1.5 mls @ 1 mls/min IV DAILY JOE Stop: 03/06/21 02:59 Last Admin: 02/04/21 03:56 Dose: 1 mls/min Documented by: Ondansetron HCl (Ondansetron Inj 2 Mg/Ml 2 Ml Vial) 4 mg IV Q6H PRN PRN Reason: Nausea Stop: 03/06/21 02:25 Potassium Chloride (Potassium Chloride Crtab 20 Meq Tabcr) [facility] [place] Stop: 03/07/21 08:59 Sodium Chloride (Sodium Chloride 0.9% 10ml Flush) 30 ml IV Q24H [facility] Stop: 02/08/21 02:46 Last Admin: 02/04/21 03:29 Dose: 30 ml Documented by: Vitamin D (Cholecalciferol 1,000 Units 25 Mcg Tab) 1,000 units [facility] [place] Stop: 03/06/21 08:59 Last Admin: 02/04/21 09:06 Dose: 1,000 units Documented by: Zinc Sulfate (Zinc Sulfate 220 Mg Capsule) 220 [facility] [place] Stop: 03/06/21 08:59 Last Admin: 02/04/21 09:06 Dose: 220 mg Documented by: PG Care Time/CCT Total # of Minutes Spent Total Time Spent with Patient: Total time spent is greater than 50% in coordination of care (as documented) at patient's floor/unit and/or counseling patient: Coding Level of Care Code 79109 Subseq Hosp Care Lvl 3 Diagnoses Pneumonia due to COVID-19 virus U07.1; J12.82 Hypoxia R09.02 Sleep apnea G47.30 Hypertension I10
[2021-02-05 08:18] LABS: Basophils # (auto) 0.01 K/uL (0-0.2); Basophils % (auto) 0.2 %; Hematocrit (blood only) 42.9 % (42-52); Hemoglobin 14.9 g/dL (14.0-18.0); Immature Granulocytes # (auto) 0.04 K/uL (0.00-0.02); Immature Granulocytes % (auto) 0.7 %; Lymphocytes # (auto) 1.13 K/uL (1.2-3.4); Mean Corpuscular Hgb Conc 34.7 g/dL (32-36); Mean Corpuscular Volume 92.3 fL (80-100); Mean Platelet Volume 9.8 fL (7.4-10.4); Monocytes # (auto) 0.87 K/uL (0.11-0.59); Monocytes % (auto) 15.4 %; Neutrophils # (auto) 3.59 K/uL (1.4-6.5); Neutrophils % (auto) 63.7 %; Platelet Count 258 K/uL (130-400); RDW Coefficient of Variation 13.3 % (11.5-14.5); RDW Standard Deviation 44.9 fL (36.4-46.3); Red Blood Count 4.65 M/uL (4.7-6.1); White Blood Count 5.64 K/uL (4.8-10.8)
[2021-02-05] MEDS: dexAMETHasone 6 MG in SYRINGE 0 ML IV SCH (08:19)
[2021-02-05] MEDS: guaiFENesin 600 MG TABCR PO SCH ×2 (08:20→21:29)
[2021-02-05] MEDS: ZINC SULFATE 220 MG CAPSULE PO SCH (08:20)
[2021-02-05] MEDS: FUROSEMIDE INJ 20 MG/2 ML VIAL IV SCH (08:20)
[2021-02-05] MEDS: POTASSIUM CHLORIDE CRTAB 20 MEQ TABCR PO SCH (08:20)
[2021-02-05] MEDS: AZITHROMYCIN 250 MG TAB PO SCH (08:20)
[2021-02-05] MEDS: ENOXAPARIN INJ 60 MG/0.6 ML SYR SQ SCH (08:20)
[2021-02-05] MEDS: CHOLECALCIFEROL 1,000 UNITS 25 MCG TAB PO SCH (08:20)
[2021-02-05 08:43] LABS: Albumin Level 2.8 gm/dl (3.4-5.0); C Reactive Protein 1.34 mg/dl (0-0.29); Calcium 8.6 mg/dl (8.5-10.1); Creatinine Clr Calc Pharmacy 127.1 ml/min; Est GFR (African American) 112.9 ml/min; Est GFR (Non-African American) 97.4 ml/min; Potassium 3.7 mmol/L (3.5-5.1)
[2021-02-05 08:46] LABS: Albumin Globulin Ratio 0.6 (0.9-2); Bilirubin,Total 0.6 mg/dl (0.2-1); Globulin 4.8 gm/dl (2.5-4.0); Total Protein 7.6 gm/dl (6.4-8.2)
--- NOTE | 2021-02-05 14:39 | Hospitalist Progress Note ---
Date of Service February 05, 2021 Assessment & Plan (1) Pneumonia due to COVID-19 virus: Plan: Pneumonia due to COVID-19 virus with hypoxia- CT scan of chest also describes artifact versus trace nonocclusive pulmonary embolus within branches of the left lower lobe pulmonary artery. Follow up venous Dopplers were negative for DVT doubt DVT at this time but given size and risk factor, will continue Lovenox while here, Xarelto on discharge continue Dexamethasone 6mg IV daily, change to PO on discharge stop Remdesivir as he is 10 days out change Zithromax to PO, but will stop as he admits to some lose stools on room air today, plan for 2 step tomorrow and d/c to home Vitamin D 1000 international units p.o. every morning Zinc sulfate turn 20 mg p.o. every morning (2) Hypoxia: Plan: stable on room air at this time continue Lasix 20mg IV daily 2 step tomorrow (3) Sleep apnea: Plan: CPAP at bedtime as needed his home CPAP does not have an oxygen connection (4) Hypertension: Plan: Hold HCTZ and lisinopril, BP is stable off it Plan: try to wean off oxygen plan to d/c tomorrow Admission and Anticipated Discharge Date Admission Date: February 03, 2021 Subjective patient doing well, down to room air this afternoon, off the 2L he slept okay with his CPAP, able to tuck the nasal canula under it eating a lot better, sense of taste and smell coming back discussed that he can likely go home tomorrow, will get a 2 step in the morning reviewed labs, they are stable, CRP is 1.3 he says he made a lot of urine this morning with the Lasix, will repeat tomorrow Review of Systems Review of Systems: All systems reviewed & are unremarkable except as noted in Subjective Respiratory: + cough, + dyspnea and + dyspnea on exertion Physical Exam Physical Exam: General: well developed, well nourished, obese male, no acute distress, comfortable Neck: supple, trachea midline, normal thyroid Lungs: clear to auscultation bilaterally, normal respiratory effort, no accessory muscle use, no distress Heart: regular S1 and S2, no murmur, peripheral pulses normal, capillary refill normal, no edema Abdomen: soft, NT, ND, + BS, no hepatomegaly, normal to percussion Extremities: normal in appearance, no cyanosis, no petechiae, strength is 5/5 bilaterally Neuro: awake, cooperative, moves all extremities, no focal motor deficits, CN II-XII intact, sensation in extremities intact, normal speech Skin: warm, dry, no rash, normal turgor Psych: Awake, alert oriented x 3, euthymic affect Results & Data Results & Data ([facility]) Vital Signs (Past 12 Hours) Vital Signs Temp Pulse Pulse Resp BP Pulse Ox 02/05/21 14:25 95 02/05/21 12:15 36.8 C 77 16 120/77 94 02/05/21 08:26 91 02/05/21 07:29 71 02/05/21 06:53 36.8 C 69 20 119/75 94 Laboratory Results Laboratory Results - last 24 hr 02/05/21 02/05/21 07:51 07:51 WBC 5.64 RBC 4.65 L Hgb 14.9 Hct 42.9 MCV 92.3 MCH 32.0 MCHC 34.7 RDW Std Deviation 44.9 RDW Coeff of Bautista 13.3 Plt Count 258 MPV 9.8 Immature Gran % (Auto) 0.7 Neut % (Auto) 63.7 Lymph % (Auto) 20.0 [place] % (Auto) 15.4 Eos % (Auto) 0.0 Baso % (Auto) 0.2 Neut # (Auto) 3.59 Lymph # (Auto) 1.13 L [place] # (Auto) 0.87 H Eos # (Auto) 0.00 Baso # (Auto) 0.01 Immature Gran # (Auto) 0.04 H Sodium 135 L D Potassium 3.7 Chloride 100 Carbon Dioxide 26 Anion Gap 9.0 BUN 13 Creatinine 0.88 Est Cr Clr Drug Dosing 127.1 Est GFR ( Amer) 112.9 Est GFR (Non-Af Amer) 97.4 BUN/Creatinine Ratio 15.0 Glucose 176 H Calcium 8.6 Total Bilirubin 0.6 AST 61 H ALT 63 Alkaline Phosphatase 42 L C-Reactive Protein 1.34 H Total Protein 7.6 Albumin 2.8 L Globulin 4.8 H Albumin/Globulin Ratio 0.6 L Medications Administered Current Inpatient Medications Acetaminophen (Acetaminophen 325 Mg Tab) 650 mg PO Q4H PRN PRN Reason: Pain or Fever Stop: 03/06/21 02:25 Albuterol (Albut/Ipratrop 3mg/0.5mg Neb 3 Ml Vial) 3 ml NEB Q4R PRN PRN Reason: Shortness Of Breath Or Wheezing Stop: 03/06/21 10:59 Azithromycin ([facility] 250 Mg Tab) [facility]: 02/12/21 08:59 Last Admin: 02/05/21 08:20 Dose: 500 mg Documented by: Enoxaparin Sodium (Enoxaparin Inj 60 Mg/0.6 Ml Syr) 60 mg SQ Q24H [facility] Stop: 03/06/21 08:59 Last Admin: 02/05/21 08:20 Dose: 60 mg Documented by: Furosemide (Furosemide Inj 20 Mg/2 Ml Vial) [facility] [place] Stop: 03/07/21 08:59 Last Admin: 02/05/21 08:20 Dose: 20 mg Documented by: Guaifenesin (Guaifenesin 600 Mg Tabcr) 1,200 mg PO Q12 [facility] Stop: 03/06/21 08:59 Last Admin: 02/05/21 08:20 Dose: 1,200 mg Documented by: Dexamethasone 6 mg/ Syringe 1.5 mls @ 1 mls/min IV DAILY [facility] Stop: 03/06/21 02:59 Last Admin: 02/05/21 08:19 Dose: 1 mls/min Documented by: Ondansetron HCl (Ondansetron Inj 2 Mg/Ml 2 Ml Vial) 4 mg IV Q6H PRN PRN Reason: Nausea Stop: 03/06/21 02:25 Potassium Chloride (Potassium Chloride Crtab 20 Meq Tabcr) 20 [facility]q [facility] [place] Stop: 03/07/21 08:59 Last Admin: 02/05/21 08:20 Dose: 20 meq Documented by: Sodium Chloride (Sodium Chloride 0.9% 10ml Flush) 30 ml IV Q24H [facility] Stop: 02/08/21 02:46 Last Admin: 02/04/21 20:50 Dose: 30 ml Documented by: Vitamin D (Cholecalciferol 1,000 Units 25 Mcg Tab) 1,000 units PO QAM [facility] Stop: 03/06/21 08:59 Last Admin: 02/05/21 08:20 Dose: 1,000 units Documented by: Zinc Sulfate (Zinc Sulfate 220 Mg Capsule) [facility] [place] Stop: 03/06/21 08:59 Last Admin: 02/05/21 08:20 Dose: 220 mg Documented by: PG Care Time/CCT Total # of Minutes Spent Total Time Spent with Patient: Total time spent is greater than 50% in coordination of care (as documented) at patient's floor/unit and/or counseling patient: Coding Level of Care Code 75497 Subseq Hosp Care Lvl 2 Diagnoses Pneumonia due to COVID-19 virus U07.1; J12.82 Hypoxia R09.02 Sleep apnea G47.30 Hypertension I10
[2021-02-05] MEDS: SODIUM CHLORIDE 0.9% 10ML FLUSH IV SCH (22:02)
[2021-02-06 08:39] LABS: Basophils # (auto) 0.02 K/uL (0-0.2); Basophils % (auto) 0.2 %; Hemoglobin 14.9 g/dL (14.0-18.0); Immature Granulocytes # (auto) 0.05 K/uL (0.00-0.02); Immature Granulocytes % (auto) 0.5 %; Lymphocytes # (auto) 1.25 K/uL (1.2-3.4); Lymphocytes % (auto) 13.3 %; Mean Corpuscular Hgb Conc 34.7 g/dL (32-36); Mean Corpuscular Volume 92.5 fL (80-100); Mean Platelet Volume 9.9 fL (7.4-10.4); Monocytes % (auto) 14.9 %; Neutrophils # (auto) 6.66 K/uL (1.4-6.5); Neutrophils % (auto) 71.1 %; Platelet Count 310 K/uL (130-400); RDW Coefficient of Variation 13.2 % (11.5-14.5); RDW Standard Deviation 44.1 fL (36.4-46.3); Red Blood Count 4.65 M/uL (4.7-6.1); White Blood Count 9.38 K/uL (4.8-10.8)
[2021-02-06] MEDS: FUROSEMIDE INJ 20 MG/2 ML VIAL IV SCH (08:48)
[2021-02-06] MEDS: dexAMETHasone 6 MG in SYRINGE 0 ML IV SCH (08:49)
[2021-02-06] MEDS: ENOXAPARIN INJ 60 MG/0.6 ML SYR SQ SCH (08:51)
[2021-02-06] MEDS: POTASSIUM CHLORIDE CRTAB 20 MEQ TABCR PO SCH (08:51)
[2021-02-06] MEDS: CHOLECALCIFEROL 1,000 UNITS 25 MCG TAB PO SCH (08:51)
[2021-02-06] MEDS: ZINC SULFATE 220 MG CAPSULE PO SCH (08:52)
[2021-02-06] MEDS: guaiFENesin 600 MG TABCR PO SCH (08:52)
[2021-02-06] MEDS: AZITHROMYCIN 250 MG TAB PO SCH (08:52)
[2021-02-06 09:09] LABS: Albumin Level 2.9 gm/dl (3.4-5.0); BUN Creatinine Ratio 16.6 (10-20); Calcium 8.8 mg/dl (8.5-10.1); Creatinine Clr Calc Pharmacy 127.1 ml/min; Est GFR (African American) 112.9 ml/min; Est GFR (Non-African American) 97.4 ml/min; Potassium 3.6 mmol/L (3.5-5.1)
[2021-02-06 09:12] LABS: Albumin Globulin Ratio 0.7 (0.9-2); Bilirubin,Total 0.9 mg/dl (0.2-1); Globulin 4.4 gm/dl (2.5-4.0); Total Protein 7.3 gm/dl (6.4-8.2)
--- NOTE | 2021-02-06 10:32 | Discharge Summary ---
Date of Service February 06, 2021 Admission HPI Per Admitting Provider The patient is a 55-year-old male with a past medical history including sleep apnea, snoring, excessive daytime sleepiness, GERD, impaired fasting glucose, hypertension, seborrheic keratoses and microscopic hematuria. The patient presents with 9 to 10 days of the above symptoms. He did have a positive home COVID-19test about 5 days ago. Pulse ox was 88% on room air in the ED Abnormal laboratories: AST 67, albumin 3.1, potassium 3.4 COVID-19 test was positive in the ED Chest x-ray and CT angiography of chest was negative for PE. Calcified granulomas were seen in the lungs, mediastinum, subcarinal areas and spleen. There are multiple groundglass opacities consistent with a viral pneumonia Principal Diagnosis COVID 19 pneumonia, acute hypoxic respiratory failure Discharge Exam General: well developed, well nourished, obese male, no acute distress, comfortable Neck: supple, trachea midline, normal thyroid Lungs: clear to auscultation bilaterally, normal respiratory effort, no accessory muscle use, no distress Heart: regular S1 and S2, no murmur, peripheral pulses normal, capillary refill normal, no edema Abdomen: soft, NT, ND, + BS, no hepatomegaly, normal to percussion Extremities: normal in appearance, no cyanosis, no petechiae, strength is 5/5 bilaterally Neuro: awake, cooperative, moves all extremities, no focal motor deficits, CN II-XII intact, sensation in extremities intact, normal speech Skin: warm, dry, no rash, normal turgor Psych: Awake, alert oriented x 3, euthymic affect Discharge Data Allergies Allergy/AdvReac Type Severity Reaction Status Date / Time No Known Allergies Allergy Verified 02/03/21 22:05 Consultations 02/03/21 21:42 ED Decision to Admit Stat Ordered Studies 02/03/21 18:14 CT angio chest PE protocol Stat 02/03/21 21:42 US venous doppler LE Stat Hospital Course (1) Pneumonia due to COVID-19 virus: Pneumonia due to COVID-19 virus with hypoxia- CT scan of chest also describes artifact versus trace nonocclusive pulmonary embolus within branches of the left lower lobe pulmonary artery. Follow up venous Dopplers were negative for DVT doubt PE at this time but given size and risk factor, will continue Lovenox while here, Xarelto 10mg daily on discharge for 30 days continue Dexamethasone 6mg IV daily, change to PO on discharge, continue for 6 more days stopped Remdesivir as he is 10 days out change Zithromax to PO, but will stop as he admits to some lose stools 2 step on day of discharge, needs 2L on exertion, stable on room air at rest (2) Hypoxia: stable on room air at this time needs 2L on exertion arrange for home oxygen (3) Sleep apnea: CPAP at bedtime as needed his home CPAP does not have an oxygen connection (4) Hypertension: Hold HCTZ and lisinopril, BP is stable off it told him to hold it for a few more days on discharge d/c to home Total Time Total Time Spent Total Time Spent (In Minutes): 32 minutes Total Time Includes: Examination of the Patient, Discharge Planning and Medication Reconciliation Discharge Plan Discharge Items Patient Disposition: Home - Self-Care Reason For Visit: COVID-19 PNEUMONIA WITH HYPOXIA Discharge Diagnosis: COVID 19 pneumonia Acute hypoxic respiratory failure Condition on Discharge: Good Goals: complete course of dexamethasone use oxygen on exertion stay well nourished, well rested Activity: Resume your previous activity Weightbearing: Full weightbearing Non-emergency contact: Primary Care Provider Call non-emergency contact if: you have any medication questions and your symptoms worsen Follow-up/Referrals: Chanel De Anda CRNP [Primary Care Provider] - 02/13/21 2:00 pm (one week apointment with a [facility] video appointment. You will need to set up your [employer] Portal on line if not already done for this video appointment. If you have any questions or need to change this appointment, please call [phone].) Diet: Regular Addtl Attending Provider Instructions: Medications: - DEXAMETHASONE: 6mg daily for 6 more days, start tomorrow morning, this is treatment for COVID 19 pneumonia - XARELTO: 10mg daily for 30 days, this is to reduce risk of blood clots with COVID COVID 19 pneumonia, acute hypoxic respiratory failure you are stable on room air at rest, you need 2L of oxygen on exertion responded well to dexamethasone, finish 6 more days no further antibiotics needed recommend that you hold the HCTZ and lisinopril until you are done with dexamethasone, blood pressure stable off them stay well rested, well nourished, well hydrated, stay off work this entire week you can take Mucinex 1200mg twice a day if you have issues with thick sputum You did NOT have evidence of a pulmonary embolism (blood clot) there was some motion artifact on the CT of the chest, radiologist could not definitively rule out very small pulmonary emboli however, you had negative ultrasound of the legs, so no DVT given your size and COVID infection, recommend you take Xarelto for 30 days to reduce risk of blood clots Pending Studies at Discharge: No Stand-Alone Forms: My [facility], Work/School Release, Smoking Cessation Medications and DC Order Prescriptions: New dexamethasone 4 mg tablet 6 mg PO DAILY 6 Days Qty: 9 RF: 0 Xarelto 10 mg tablet 10 mg PO DAILY 30 Days Qty: 30 RF: 0 Discontinued lisinopril 10 mg tablet 10 mg PO DAILY Qty: 30 RF: 5 amoxicillin-pot clavulanate [Augmentin] 875-125 mg tablet 1 tab PO BID Qty: 14 RF: 0 azithromycin 250 mg tablet See Rx Instructions PO .COMPLEX Qty: 6 RF: 0 hydrochlorothiazide 25 mg tablet 25 mg PO DAILY PRN (Reason: swelling) Qty: 30 RF: 5 Discharge Orders: Discharge Order (Routine); Ordered 02/06/21 Ordered By: Ceferino Mitchell Admission Data Admit Date/Time: 02/03/21 23:42 Attending Provider: Ceferino Mitchell Admit Provider: Guillermo Santamaria Primary Care Provider: Chanel De Anda Other Providers: Guillermo Santamaria Coding Level of Care Code D/C DAY MANAGEMENT >30 MINS Diagnoses Pneumonia due to COVID-19 virus U07.1; J12.82 Hypoxia R09.02 Sleep apnea G47.30 Hypertension I10
== END 2021-02-06 15:20 | disposition home or self-care (01) | DRG 177 ==
LOC: ED 16:40 → EDINP 23:42 → SUATTDRO 23:42 → 2N 02-04 12:38